=== PATIENT | male | born 1945 | race Caucasian/White ===

== ENCOUNTER → 2019-03-06 19:49 | Outpatient (ROUT) | payer MEDICARE, SELFPAY ==
[2019-03-06 20:04] LABS: Add Manual Diff / Slide Review NO; Basophils Absolute Auto 100 /uL (0-100); Basophils Percent Auto 1.1 % (0-2); Eosinophils Absolute Auto 300 /uL (0-450); Eosinophils Percent Auto 2.6 % (2-4); Hemoglobin 15.8 g/dL (13.5-17.5); Lymphocytes Absolute Auto 2000 /uL (1100-4500); Lymphocytes Percent Auto 20.4 % (25-40); Mean Corpuscular HGB Conc 35.1 % (30-36); Mean Corpuscular Hemoglobin 33.2 PG (26-34); Mean Corpuscular Volume 94.4 fL (80-100); Monocytes Absolute Auto 900 /uL (0-900); Monocytes Percent Auto 9.4 % (3-14); Neutrophils Absolute Auto 6700 /uL (1500-7000); Neutrophils Percent Auto 66.5 % (50-75); Platelet Count 246 X10^3/uL (150-400); Red Blood Cell Count 4.76 X10^6/uL (4.5-5.9); Red Cell Distribution Width 12.4 % (11.6-14.8)
[2019-03-06 20:10] LABS: Alanine Aminotransferase 24 IU/L (<50); Albumin 4.1 g/dL (3.5-5.0); Albumin Globulin Ratio 1.9 (1.0-2.8); Alkaline Phosphatase 102 U/L (38-126); Aspartate Aminotransferase 33 IU/L (17-59); Bilirubin Total 0.7 mg/dL (0.2-1.3); Blood Urea Nitrogen 16 mg/dL (9-20); Calcium 9.8 mg/dL (8.4-10.2); Carbon Dioxide 28 mmol/L (22-32); Chloride 103 mmol/L (98-107); Cholesterol 195 mg/dL (140-199); Estimated Glomerular Filt Rate > 60.0 mL/min (>60); Globulin 2.2 g/dL (1.7-4.1); Glucose 126 mg/dL (80-110); HDL Cholesterol 50 mg/dL (40-60); HEMOLYSIS 20 (0-50); LDL Cholesterol Calculated 112 mg/dL (<100); Magnesium 2.3 mg/dL (1.6-2.3); Sodium 138 mmol/L (137-145); Total Protein 6.3 g/dL (6.3-8.2); Triglycerides 165 mg/dL (35-150)
[2019-03-06 20:26] LABS: Vitamin D 25 Hydroxy (D3) 16.8 ng/mL (30.0-100.0)
[2019-03-06 20:30] LABS: B Type Natriuretic Peptide < 100 (<100)
== END ==
PROVIDERS: Visit Provider Physician Assistant
DX: I10 Essential (primary) hypertension (principal); R60.9 Edema, unspecified; R25.2 Cramp and spasm; I20.8 Other forms of angina pectoris; E55.9 Vitamin D deficiency, unspecified; E78.2 Mixed hyperlipidemia
CPT/HCPCS: 80053; 80061; 82306; 83735; 83880; 85025

== ENCOUNTER → 2019-03-20 13:42 | Outpatient (CLI) | payer MEDICARE, SELFPAY ==
--- NOTE | 2019-03-20 | DI.ECHO.S_ITS ---
[facility] +---------+ : : [address] : : : : [id number] : : : : Phone: [phone]---------+ Echocardiogram Report + + :Name: GILBERTO TAVAREZ Study Date: 03/20/2019 Height: 72 in : :[facility] Weight: 205 lb : : Gender: Male BSA: 2.2 m2 : :: 1945 Age: 73 yrs BP: 144/90 mmHg: :Reason For Study: Angina : : Performed By: [facility] Staff : :Referring: KAYLA MCGILL : + + Interpretation Summary The left ventricle is normal in size.The ejection fraction is estimated to be 60-65%. The right ventricle is normal in size and function. No significant valvular pathology seen. Procedure: A two-dimensional transthoracic echocardiogram with color flow and Doppler was performed. The study quality was technically adequate. There is no prior echocardiogram noted for this patient. The patient was in normal sinus rhythm during the exam. The heart rate ranged between 49-64 bpm during the study. Left Ventricle: The left ventricle is normal in size. There is mild concentric left ventricular hypertrophy. A false chord is noted (normal variant). Left ventricular systolic function is normal. The ejection fraction is estimated to be 60-65%. Left ventricular wall motion is normal. Diastolic parameters suggest a relaxation abnormality of the left ventricle, consistent with probable normal filling pressures. Right Ventricle: The right ventricle is normal in size and function. Atria: The left atrial size is normal. Right atrial size is normal. The interatrial septum is intact with no evidence for an atrial septal defect. Mitral Valve: The mitral valve leaflets are slightly calcified. There is trace mitral regurgitation. Aortic Valve: The aortic valve is trileaflet. The aortic valve opens well. There is no aortic valve stenosis. No aortic regurgitation is present. Tricuspid Valve: The tricuspid valve is normal in structure and function. There is trace tricuspid regurgitation. Pulmonary artery pressures cannot be estimated because of the lack of a measurable TR jet velocity. Pulmonic Valve: The pulmonic valve is not well seen, but is grossly normal. There is trace pulmonic regurgitation. Great Vessels: The aortic root is mildly dilated. The dimensions of the ascending aorta are normal. The pulmonary artery is normal size. The IVC is dilated (diameter is greater than 2.1 cm) yet it collapses greater than 50% with a sniff. This suggests a right atrial pressure of 8 mm Hg. Pericardium/ Pleura There is no pericardial effusion. There is no pleural effusion. MMode/2D Measurements & Calculations LVIDd: 4.9 cm LVOT diam: 2.1 cm LVIDs: 3.4 cm Ao root diam: 3.9 cm FS: 31.4 % Aortic Jxn: 3.4 cm EPSS: 0.74 cm asc Aorta Diam: 3.4 cm IVSd: 1.0 cm LVPWd: 1.1 cm LV lang. diameter/BSA (cm/m^2): 2.3 LV sys. diameter/BSA (cm/m^2): 1.6 LA A2 area: 18.7 cm2 RA long axis: 5.4 cm LA A4 area: 16.5 cm2 RA area: 14.1 cm2 LA length (vol): 5.0 cm RA vol: 31.2 ml LA vol: 52.4 ml RA : 14.5 ml/m2 LA vol index: 24.3 ml/m2 TAPSE: 2.1 cm Doppler Measurements & Calculations Ao V2 max: 112.6 cm/sec LVOT Max Len: 98.4 cm/sec Ao V2 mean: 75.4 cm/sec LV V1 max P.9 mmHg Ao max P.1 mmHg LV V1 VTI: 21.8 cm Ao mean P.7 mmHg ASIA(I,D): 3.3 cm2 Ao V2 VTI: 24.3 cm ASIA(V,D): 3.2 cm2 sev ratio: 0.90 ASIA indexed to BSA (cm^2/m^2): 1.5 MV E max len: 65.4 cm/sec PA V2 max: 81.8 cm/sec MV A max len: 88.3 cm/sec PA V2 mean: 52.3 cm/sec MV E/A: 0.74 PA mean P.3 mmHg Med Peak E' Len: 5.2 cm/sec PA Accel Time: 0.12 sec E/E' med: 12.7 Lat Peak E' Len: 7.1 cm/sec E/E' lat: 9.2 E/e' average: 10.9 MV dec time: 0.17 sec SV(LVOT): 79.0 ml Reading Physician:12:50 PM
== END ==
PROVIDERS: Visit Provider Physician Assistant
DX: I20.8 Other forms of angina pectoris (principal); R07.9 Chest pain, unspecified; R60.9 Edema, unspecified
CPT/HCPCS: 93306

== ENCOUNTER 2021-01-29 11:32 | Emergency (ER) | payer MEDICARE, SELFPAY ==
[2021-01-29] VITALS (20 sets, daily range): BP systolic 155–214; BP diastolic 77–110; PULSE 59–77; RESP 13–24; TEMP 36.7; O2SAT 93–97; BMI 25.7
--- NOTE | 2021-01-29 11:48 | DI.RAD.S_ITS ---
PROCEDURE: XR CHEST 1V INDICATIONS: chest pain TECHNIQUE: One view of the chest was acquired. COMPARISON: None. FINDINGS: Surgical changes and devices: Lower cervical spine fixation hardware is seen. Lungs and pleura: On this semiupright portable chest examination, no large pneumothorax or large pleural effusions are seen. No focal infiltrates are seen. Mediastinum: The cardiac contours are within normal limits. The aorta demonstrates calcification and tortuosity. Bones and chest wall: Age-appropriate bony degenerative changes are seen. No suspicious bony lesions. Overlying soft tissues appear unremarkable. IMPRESSION: Unremarkable portable chest for age, with note made of postoperative and degenerative change. Dictated by: Luan Patten M.D. on 01/29/2021 at 11:16 Approved by: Luan Patten M.D. on 01/29/2021 at 11:17
[2021-01-29 12:27] LABS: Add Manual Diff / Slide Review NO; Basophils Absolute Auto 100 /uL (0-100); Basophils Percent Auto 1.1 % (0-2); Eosinophils Absolute Auto 100 /uL (0-450); Eosinophils Percent Auto 1.1 % (2-4); Hematocrit 44.7 % (41-53); Hemoglobin 15.9 g/dL (13.5-17.5); Lymphocytes Absolute Auto 2000 /uL (1100-4500); Mean Corpuscular HGB Conc 35.6 % (30-36); Mean Corpuscular Hemoglobin 33.9 PG (26-34); Mean Corpuscular Volume 95.3 fL (80-100); Monocytes Absolute Auto 800 /uL (0-900); Neutrophils Absolute Auto 6500 /uL (1500-7000); Neutrophils Percent Auto 68.8 % (50-75); Platelet Count 224 X10^3/uL (150-400); Red Blood Cell Count 4.69 X10^6/uL (4.5-5.9); Red Cell Distribution Width 12.7 % (11.6-14.8); White Blood Cell Count 9.4 X10^3/uL (4.5-11.0)
--- NOTE | 2021-01-29 12:31 | ED_ITS ---
HPI - Dizziness <Roberto Soni PA-C - Last Filed: 01/29/21 18:21> General Chief Complaint: Dizziness Stated Complaint: Dizzy, High BP x 2days Time Seen by Provider: 01/29/21 12:01 Source: patient Mode of arrival: Family Vehicle Limitations: no limitations History of Present Illness HPI Narrative: Patient is a 75-year-old male with a history of hypertension and tinnitus presenting to the emergency department today for an evaluation of dizziness that began approximately 2 days ago. Patient states that he has had intermittent episodes of dizziness that he states is worse with rapid position change. He notes that his dizziness can become severe enough caused him to stumble. Additionally, patient states that he has experienced intermittent episodes of calf cramping bilaterally, mild headache, nausea, and cough. He also notes that his blood pressure has been elevated recently, stating that his systolic blood pressure was 196 prior to arriving to the emergency department today. Of note, he states that his systolic blood pressure is usually below 150. Patient denies further symptoms including fever, chills, chest pain, shortness of breath, abdominal pain, vomiting, diarrhea, dysuria, ear pain, syncope, changes in vision. No further complaints voiced at this time. Related Data Previous Rx's Medication Instructions Recorded meclizine 12.5 mg tablet 12.5 mg PO DAILY #20 tab 01/29/21 Review of Systems <Roberto Soni PA-C - Last Filed: 01/29/21 18:21> Constitutional Constitutional: Denies chills, Denies fever(s), Denies frequent falls, Denies lethargy and Denies weakness Eyes Eyes: Denies change in vision, Denies eye discharge, Denies irritation and Denies loss of vision ENT Ears, Nose, Mouth, and Throat: Denies change in voice, Reports dizziness, Denies neck pain and Denies sore throat Cardiovascular Cardiovascular: Denies chest pain, Denies irregular heart rhythm, Denies lightheadedness, Denies palpitations, Denies dyspnea, Denies dyspnea on exertion and Denies orthopnea Respiratory Respiratory: Reports cough, Denies dyspnea, Denies dyspnea on exertion and Denies wheezing Gastrointestinal Gastrointestinal: Denies abdominal pain, Denies change in bowel habits, Denies diarrhea, Denies nausea and Denies vomiting Genitourinary Genitourinary: Denies hematuria and Denies dysuria Musculoskeletal Musculoskeletal: Denies neck pain and Denies numbness Neurologic Neurologic: Denies behavioral changes, Denies confusion, Reports dizziness, Denies frequent falls, Denies loss of vision, Denies numbness and Denies weakness Psychiatric Psychiatric: Denies behavioral changes and Denies confusion Endocrine Endocrine: Denies palpitations Allergic/Immunologic Allergic/Immunologic: Denies wheezing Patient History <Roberto Soni PA-C - Last Filed: 01/29/21 18:21> Social History Smoking Status: Former smoker Smoking Status: Former smoker alcohol intake frequency: 3 or more drinks per day Alcohol type: hard liquor Substance Use Type: marijuana Exam <Roberto Soni PA-C - Last Filed: 01/29/21 18:21> Narrative Exam Narrative: GENERAL: 75 year old patient appears stated age. Well-developed patient, in no acutedistress. HEAD: Atraumatic. Normocephalic. EYES: Pupils equal round and reactive. Extraocular motions intact. No scleral icterus. No injection or drainage. ENT: Nose without bleeding, purulent drainage. Throat without erythema, tonsillar hypertrophy or exudate. Airway patent. NECK: Trachea midline. Non tender CARDIOVASCULAR: Regular rate and rhythm without murmurs, gallops, or rubs. RESPIRATORY: Clear to auscultation. Breath sounds equal bilaterally. No wheezes, rales, or rhonchi. GASTROINTESTINAL: Abdomen soft, non-tender, nondistended. EXTREMITIES: No edema or joint tenderness. BACK: Nontender without deformity or crepitance. No flank tenderness. NEURO: AOx3. SKIN: No rash or erythema of visible areas Initial Vital Signs Initial Vital Signs: Vital Signs Temperature 98.0 F 01/29/21 11:41 Pulse Rate 71 01/29/21 11:41 Respiratory Rate 20 01/29/21 11:41 Blood Pressure 191/100 H 01/29/21 11:41 Pulse Oximetry 96 01/29/21 11:41 <Jessica Dia DO - Last Filed: 01/30/21 08:17> Initial Vital Signs Initial Vital Signs: Vital Signs Temperature 98.0 F 01/29/21 11:41 Pulse Rate 71 01/29/21 11:41 Respiratory Rate 20 01/29/21 11:41 Blood Pressure 191/100 H 01/29/21 11:41 Pulse Oximetry 96 01/29/21 11:41 Course <Roberto Soni PA-C - Last Filed: 01/29/21 18:21> Course Course Narrative: Patient is a 75-year-old male with a history of hypertension and tinnitus presenting to the emergency department today for an evaluation of dizziness that began approximately 2 days ago. Orders Ordered: Discontinued Medications Sodium Chloride (Normal Saline 0.9%) 1,000 mls @ 1,000 mls/hr IV BOLUS ONE Stop: 01/29/21 15:07 Last Infusion: 01/29/21 16:22 Dose: 0 mls/hr Documented by: Admin: 01/29/21 14:11 Dose: 1,000 mls/hr Documented by: CARLINE Labetalol HCl (Labetalol 20 Mg/4 Ml Syringe) 10 mg IV NOW ONE Stop: 01/29/21 14:33 Last Admin: 01/29/21 14:36 Dose: 10 mg Documented by: CARLINE Meclizine HCl (Meclizine Hcl 12.5 Mg Tablet) 25 mg PO NOW ONE Stop: 01/29/21 12:46 Last Admin: 01/29/21 13:26 Dose: 25 mg Documented by: CARLINE Reevaluation(s) Reevaluation #1: Patient states he is comfortable in his current position on stretcher. He states that he just returned back from his CT scan. Most recent blood pressure was recorded at 214/104. Time: 13:49 Reevaluation #2: Patient states he is feeling much better and has no further reported episodes dizziness. Additionally, blood pressure has decreased following administration of IV labetalol. Time: 15:42 Vital Signs Vital signs: Vital Signs - 8 hr 01/29/21 11:41 01/29/21 11:57 01/29/21 12:00 Temperature 98.0 F Pulse Rate 71 63 64 Respiratory Rate 20 18 17 Blood Pressure 191/100 H 204/96 H Pulse Oximetry 96 96 01/29/21 12:21 01/29/21 12:30 01/29/21 13:00 Temperature Pulse Rate 62 63 59 L Respiratory Rate 19 21 13 Blood Pressure 192/95 H 181/94 H 155/77 H Pulse Oximetry 95 96 93 01/29/21 13:19 01/29/21 13:30 01/29/21 13:55 Temperature Pulse Rate 69 68 60 Respiratory Rate 24 17 Blood Pressure 214/103 H 214/104 H 199/91 H Pulse Oximetry 97 97 95 01/29/21 14:00 01/29/21 14:04 01/29/21 14:06 Temperature Pulse Rate 69 77 74 Respiratory Rate 15 23 20 Blood Pressure 200/95 H 196/100 H 191/110 H Pulse Oximetry 95 94 94 01/29/21 14:30 01/29/21 14:31 01/29/21 14:36 Temperature Pulse Rate 59 L 61 60 Respiratory Rate 15 16 Blood Pressure 192/81 H 192/81 H Pulse Oximetry 96 97 01/29/21 15:00 01/29/21 15:27 01/29/21 15:30 Temperature Pulse Rate 71 67 64 Respiratory Rate 21 16 18 Blood Pressure 170/85 H 176/90 H Pulse Oximetry 96 95 94 01/29/21 16:00 01/29/21 16:30 Temperature Pulse Rate 65 63 Respiratory Rate 19 15 Blood Pressure 168/82 H 163/77 H Pulse Oximetry 95 96 <Jessica Dia, DO - Last Filed: 01/30/21 08:17> Orders Ordered: Discontinued Medications Sodium Chloride (Normal Saline 0.9%) 1,000 mls @ 1,000 mls/hr IV BOLUS ONE Stop: 01/29/21 15:07 Last Infusion: 01/29/21 16:22 Dose: 0 mls/hr Documented by: Admin: 01/29/21 14:11 Dose: 1,000 mls/hr Documented by: CARLINE Labetalol HCl (Labetalol 20 Mg/4 Ml Syringe) 10 mg IV NOW ONE Stop: 01/29/21 14:33 Last Admin: 01/29/21 14:36 Dose: 10 mg Documented by: CARLINE Meclizine HCl (Meclizine Hcl 12.5 Mg Tablet) 25 mg PO NOW ONE Stop: 01/29/21 12:46 Last Admin: 01/29/21 13:26 Dose: 25 mg Documented by: CARLINE Vital Signs Vital signs: Vital Signs - 8 hr 01/29/21 11:41 01/29/21 11:57 01/29/21 12:00 Temperature 98.0 F Pulse Rate 71 63 64 Respiratory Rate 20 18 17 Blood Pressure 191/100 H 204/96 H Pulse Oximetry 96 96 01/29/21 12:21 01/29/21 12:30 01/29/21 13:00 Temperature Pulse Rate 62 63 59 L Respiratory Rate 19 21 13 Blood Pressure 192/95 H 181/94 H 155/77 H Pulse Oximetry 95 96 93 01/29/21 13:19 01/29/21 13:30 01/29/21 13:55 Temperature Pulse Rate 69 68 60 Respiratory Rate 24 17 Blood Pressure 214/103 H 214/104 H 199/91 H Pulse Oximetry 97 97 95 01/29/21 14:00 01/29/21 14:04 01/29/21 14:06 Temperature Pulse Rate 69 77 74 Respiratory Rate 15 23 20 Blood Pressure 200/95 H 196/100 H 191/110 H Pulse Oximetry 95 94 94 01/29/21 14:30 01/29/21 14:31 01/29/21 14:36 Temperature Pulse Rate 59 L 61 60 Respiratory Rate 15 16 Blood Pressure 192/81 H 192/81 H Pulse Oximetry 96 97 01/29/21 15:00 01/29/21 15:27 01/29/21 15:30 Temperature Pulse Rate 71 67 64 Respiratory Rate 21 16 18 Blood Pressure 170/85 H 176/90 H Pulse Oximetry 96 95 94 01/29/21 16:00 01/29/21 16:30 Temperature Pulse Rate 65 63 Respiratory Rate 19 15 Blood Pressure 168/82 H 163/77 H Pulse Oximetry 95 96 MDM - Dizziness <Roberto Soni PA-C - Last Filed: 01/29/21 18:21> Lab Data Result diagrams: 01/29/21 12:19 01/29/21 12:19 Labs: Lab Results 01/29/21 01/29/21 01/29/21 Range/Units 12:19 12:19 15:15 WBC 9.4 (4.5-11.0) X10^3/uL RBC 4.69 (4.5-5.9) X10^6/uL Hgb 15.9 (13.5-17.5) g/dL Hct 44.7 (41-53) % MCV 95.3 (80-100) fL MCH 33.9 (26-34) PG MCHC 35.6 (30-36) % RDW 12.7 (11.6-14.8) % Plt Count 224 (150-400) X10^3/uL Neut % (Auto) 68.8 (50-75) % Lymph % (Auto) 21.0 L (25-40) % [place] % (Auto) 8.0 (3-14) % Eos % (Auto) 1.1 L (2-4) % Baso % (Auto) 1.1 (0-2) % Neut # (Auto) 6500 (9431-6293) /uL Lymph # (Auto) 2000 (3754-5556) /uL [place] # (Auto) 800 (0-900) /uL Eos # (Auto) 100 (0-450) /uL Baso # (Auto) 100 (0-100) /uL Sodium 137 (137-145) mmol/L Potassium 4.2 (3.4-5.1) mmol/L Chloride 105 (98-107) mmol/L Carbon Dioxide 25 (22-32) mmol/L BUN 15 (9-20) mg/dL Creatinine 1.15 (0.66-1.25) mg/dL Estimated GFR > 60.0 (>60) mL/min BUN/Creatinine Ratio 13.0 (6-22) Glucose 121 H (80-110) mg/dL Calcium 9.3 (8.4-10.2) mg/dL Total Bilirubin 0.8 (0.2-1.3) mg/dL AST 27 (17-59) IU/L ALT 18 (<50) IU/L Alkaline Phosphatase 76 (38-126) U/L Total Creatine Kinase 112 (55-170) U/L CK-MB (CK-2) 1.77 (<2.37) ng/mL CK-MB (CK-2) Rel Index 1.6 (1.5-5.0) % Troponin I < 0.012 (0.01-0.034) ng/mL Total Protein 6.1 L (6.3-8.2) g/dL Albumin 4.0 (3.5-5.0) g/dL Globulin 2.1 (1.7-4.1) g/dL Albumin/Globulin Ratio 1.9 (1.0-2.8) Lipase 78 (23-300) U/L Urine Color Yellow Urine Appearance Clear Urine pH 6.0 (4.5-8.0) Ur Specific [place] <=1.005 (1.000-1.035) Urine Protein Negative (Negative) Urine Glucose (UA) Negative (Negative) g/dL Urine Ketones Negative (NEGATIVE) Urine Occult Blood Trace-intact (Negative) Urine Nitrate Negative (Negative) Urine Bilirubin Negative (NEGATIVE) Urine Urobilinogen 0.2 (0.2) E.U./dL Ur Leukocyte Esterase Negative (NEGATIVE) Urine RBC 0-1/hpf (0-5/HPF) Urine WBC None seen (0-5/HPF) Urine Bacteria None seen (None) Ur Culture Indicated? Cult not indicated 01/29/21 Range/Units 15:30 WBC (4.5-11.0) X10^3/uL RBC (4.5-5.9) X10^6/uL Hgb (13.5-17.5) g/dL Hct (41-53) % MCV (80-100) fL MCH (26-34) PG MCHC (30-36) % RDW (11.6-14.8) % Plt Count (150-400) X10^3/uL Neut % (Auto) (50-75) % Lymph % (Auto) (25-40) % [place] % (Auto) (3-14) % Eos % (Auto) (2-4) % Baso % (Auto) (0-2) % Neut # (Auto) (6500-6461) /uL Lymph # (Auto) (9528-3062) /uL [place] # (Auto) (0-900) /uL Eos # (Auto) (0-450) /uL Baso # (Auto) (0-100) /uL Sodium (137-145) mmol/L Potassium (3.4-5.1) mmol/L Chloride (98-107) mmol/L Carbon Dioxide (22-32) mmol/L BUN (9-20) mg/dL Creatinine (0.66-1.25) mg/dL Estimated GFR (>60) mL/min BUN/Creatinine Ratio (6-22) Glucose (80-110) mg/dL Calcium (8.4-10.2) mg/dL Total Bilirubin (0.2-1.3) mg/dL AST (17-59) IU/L ALT (<50) IU/L Alkaline Phosphatase (38-126) U/L Total Creatine Kinase 118 (55-170) U/L CK-MB (CK-2) 1.59 (<2.37) ng/mL CK-MB (CK-2) Rel Index 1.3 L (1.5-5.0) % Troponin I < 0.012 (0.01-0.034) ng/mL Total Protein (6.3-8.2) g/dL Albumin (3.5-5.0) g/dL Globulin (1.7-4.1) g/dL Albumin/Globulin Ratio (1.0-2.8) Lipase (23-300) U/L Urine Color Urine Appearance Urine pH (4.5-8.0) Ur Specific [place] (1.000-1.035) Urine Protein (Negative) Urine Glucose (UA) (Negative) g/dL Urine Ketones (NEGATIVE) Urine Occult Blood (Negative) Urine Nitrate (Negative) Urine Bilirubin (NEGATIVE) Urine Urobilinogen (0.2) E.U./dL Ur Leukocyte Esterase (NEGATIVE) Urine RBC (0-5/HPF) Urine WBC (0-5/HPF) Urine Bacteria (None) Ur Culture Indicated? MDM Narrative Medical decision making narrative: Patient is a 75-year-old male with a history of hypertension and tinnitus presenting to the emergency department today for an evaluation of dizziness that began approximately 2 days ago. To consider benign paroxysmal positional vertigo versus electrolyte derangement versus hypertensive urgency. Chest x-ray, EKG, CBC, CMP, lipase, troponin, urinalysis obtained. Overall history and physical examination reassuring. Chest x-ray and CT obtained in the emergency department today unremarkable. Additionally, lab work all resulted reassuring. Discussed with the patient the results of his lab work and imaging obtained today. Instructed the patient to reach out to his primary care provider as soon as possible to schedule the earliest available appointment. Of note, specifically discussed with the patient the need to focus on strict adherence to his antihypertensive medication regimen. At this time patient feels comfortable with being discharge home. Strict return precautions were discussed with the patient prior to discharge. <Jessica Dia DO - Last Filed: 01/30/21 08:17> Lab Data Labs: Lab Results 01/29/21 01/29/21 01/29/21 Range/Units 12:19 12:19 15:15 WBC 9.4 (4.5-11.0) X10^3/uL RBC 4.69 (4.5-5.9) X10^6/uL Hgb 15.9 (13.5-17.5) g/dL Hct 44.7 (41-53) % MCV 95.3 (80-100) fL MCH 33.9 (26-34) PG MCHC 35.6 (30-36) % RDW 12.7 (11.6-14.8) % Plt Count 224 (150-400) X10^3/uL Neut % (Auto) 68.8 (50-75) % Lymph % (Auto) 21.0 L (25-40) % [place] % (Auto) 8.0 (3-14) % Eos % (Auto) 1.1 L (2-4) % Baso % (Auto) 1.1 (0-2) % Neut # (Auto) 6500 (5308-2573) /uL Lymph # (Auto) 2000 (4647-6917) /uL [place] # (Auto) 800 (0-900) /uL Eos # (Auto) 100 (0-450) /uL Baso # (Auto) 100 (0-100) /uL Sodium 137 (137-145) mmol/L Potassium 4.2 (3.4-5.1) mmol/L Chloride 105 (98-107) mmol/L Carbon Dioxide 25 (22-32) mmol/L BUN 15 (9-20) mg/dL Creatinine 1.15 (0.66-1.25) mg/dL Estimated GFR > 60.0 (>60) mL/min BUN/Creatinine Ratio 13.0 (6-22) Glucose 121 H (80-110) mg/dL Calcium 9.3 (8.4-10.2) mg/dL Total Bilirubin 0.8 (0.2-1.3) mg/dL AST 27 (17-59) IU/L ALT 18 (<50) IU/L Alkaline Phosphatase 76 (38-126) U/L Total Creatine Kinase 112 (55-170) U/L CK-MB (CK-2) 1.77 (<2.37) ng/mL CK-MB (CK-2) Rel Index 1.6 (1.5-5.0) % Troponin I < 0.012 (0.01-0.034) ng/mL Total Protein 6.1 L (6.3-8.2) g/dL Albumin 4.0 (3.5-5.0) g/dL Globulin 2.1 (1.7-4.1) g/dL Albumin/Globulin Ratio 1.9 (1.0-2.8) Lipase 78 (23-300) U/L Urine Color Yellow Urine Appearance Clear Urine pH 6.0 (4.5-8.0) Ur Specific [place] <=1.005 (1.000-1.035) Urine Protein Negative (Negative) Urine Glucose (UA) Negative (Negative) g/dL Urine Ketones Negative (NEGATIVE) Urine Occult Blood Trace-intact (Negative) Urine Nitrate Negative (Negative) Urine Bilirubin Negative (NEGATIVE) Urine Urobilinogen 0.2 (0.2) E.U./dL Ur Leukocyte Esterase Negative (NEGATIVE) Urine RBC 0-1/hpf (0-5/HPF) Urine WBC None seen (0-5/HPF) Urine Bacteria None seen (None) Ur Culture Indicated? Cult not indicated 01/29/21 Range/Units 15:30 WBC (4.5-11.0) X10^3/uL RBC (4.5-5.9) X10^6/uL Hgb (13.5-17.5) g/dL Hct (41-53) % MCV (80-100) fL MCH (26-34) PG MCHC (30-36) % RDW (11.6-14.8) % Plt Count (150-400) X10^3/uL Neut % (Auto) (50-75) % Lymph % (Auto) (25-40) % [place] % (Auto) (3-14) % Eos % (Auto) (2-4) % Baso % (Auto) (0-2) % Neut # (Auto) (6464-5229) /uL Lymph # (Auto) (6102-4727) /uL [place] # (Auto) (0-900) /uL Eos # (Auto) (0-450) /uL Baso # (Auto) (0-100) /uL Sodium (137-145) mmol/L Potassium (3.4-5.1) mmol/L Chloride (98-107) mmol/L Carbon Dioxide (22-32) mmol/L BUN (9-20) mg/dL Creatinine (0.66-1.25) mg/dL Estimated GFR (>60) mL/min BUN/Creatinine Ratio (6-22) Glucose (80-110) mg/dL Calcium (8.4-10.2) mg/dL Total Bilirubin (0.2-1.3) mg/dL AST (17-59) IU/L ALT (<50) IU/L Alkaline Phosphatase (38-126) U/L Total Creatine Kinase 118 (55-170) U/L CK-MB (CK-2) 1.59 (<2.37) ng/mL CK-MB (CK-2) Rel Index 1.3 L (1.5-5.0) % Troponin I < 0.012 (0.01-0.034) ng/mL Total Protein (6.3-8.2) g/dL Albumin (3.5-5.0) g/dL Globulin (1.7-4.1) g/dL Albumin/Globulin Ratio (1.0-2.8) Lipase (23-300) U/L Urine Color Urine Appearance Urine pH (4.5-8.0) Ur Specific [place] (1.000-1.035) Urine Protein (Negative) Urine Glucose (UA) (Negative) g/dL Urine Ketones (NEGATIVE) Urine Occult Blood (Negative) Urine Nitrate (Negative) Urine Bilirubin (NEGATIVE) Urine Urobilinogen (0.2) E.U./dL Ur Leukocyte Esterase (NEGATIVE) Urine RBC (0-5/HPF) Urine WBC (0-5/HPF) Urine Bacteria (None) Ur Culture Indicated? Imaging Data CTA - brain/neck: Radiologist's Impression: PROCEDURE:? CT ANGIO HEAD AND NECK ? INDICATIONS:? Dizziness ? TECHNIQUE:? Pre-contrast 4.5 mm thick sections acquired from the foramen magnum to the vertex.? After the administration of intravenous contrast, 1 mm thick sections acquired from the aortic arch through the Robinson of [place].? Post-contrast 4.5 mm thick sections then re- acquired from the foramen magnum to the vertex.? 3-dimensional wekhwdo-cscpidozi-koulhffcez (MIP) and/or volume rendering reformats were acquired of the central intracranial vasculature and neck separately. ? COMPARISON:? None. ? FINDINGS: Image quality:? Excellent.? ? BRAIN:? CSF spaces:? Ventricles are normal in size and shape.? Basal cisterns are patent.? No extra-axial fluid collections.? ? ? Brain:? No midline shift.? No intracranial bleeds or masses.? Jain-white matter interface appears intact.? Minimal atherosclerotic calcifications noted in the intracranial segments of the internal carotid arteries.? ? Skull and face:? Calvarium and facial bones appear intact, without suspicious lesions.? Orbits appear normal.? ? ? Sinuses:? Likely mucous retention cyst identified in the bilateral maxillary sinuses.? Mastoid air cells are clear ? ? HEAD CT ANGIOGRAPHY:? Anterior circulation:? Mild scattered intracranial internal carotid artery vascular calcifications.? Intracranial internal carotid arteries appear patent without high-grade stenosis. There is flow/opacification within the paired anterior cerebral raeann xavi.? The flow within the middle cerebral arteries appears normal and symmetric.? The anterior communicating artery is seen.? No aneurysms are seen. No occlusion. ? ? Posterior circulation:? ? Visualized portions of the vertebral arteries are patent and join to form a normal appearing basilar artery.? No evidence for high-grade stenosis. No occlusions. There is opacification of the posterior cerebral arteries.? No aneurysms are seen.? ? NECK CT ANGIOGRAPHY:? Carotid system:? The origins of the great vessels were not included in the field of view. ?The proximal great vessels to include the brachiocephalic trunk, left common carotid artery, and left subclavian artery appear widely patent.? The common carotid arteries demonstrate normal caliber and courses.? Mild atherosclerotic calcifications of the bilateral carotid bifurcations.? The origins of the carotid bifurcations appear widely patent as is the internal carotid artery.? The internal carotid arteries demonstrate normal calibers and courses.? ? Posterior circulation:? ? The origins of the vertebral arteries both appear patent without hemodynamically significant stenosis.? The more superior extracranial portions of both vertebral arteries also demonstrate normal courses and calibers.? They join to form a normal appearing basilar artery. ? ? ? Soft tissues:? Visualized neck soft tissues demonstrate no suspicious abnormalities. ? ? Bones:? No suspicious bony lesions.? Visualized cervical spine appears normally aligned.? No acute compression fractures of the vertebral bodies.? Postoperative changes from anterior cervical discectomy and fusion of C4 through C7.? No evidence for hardware complication.? Moderate multilevel cervical spondylosis of the imaged cervical spine.? ? IMPRESSION:? ? 1. CT head without acute intracranial abnormalities or acute calvarial fractures. ? 2. Scattered atherosclerotic calcifications without hemodynamically significant stenosis of the imaged intracranial and extracranial arterial vasculature.? Overall, negative CT angiogram of the head and neck. ? 3. Status post ACDF of C4 through C7 without hardware complication.? Moderate multilevel cervical spondylosis.? ? 4. Mucous retention cyst noted in the bilateral maxillary sinuses.? ? Any quantitative measurements of stenosis were performed using NASCET criteria.? Any quantitative measurements of stenosis were performed using NASCET criteria.? ? ? Dictated by: Oswaldo Duong M.D. on 01/29/2021 at 13:40 ?? Chest x-ray: Radiologist's Impression: PROCEDURE:? XR CHEST 1V ? INDICATIONS:? chest pain ? TECHNIQUE:? One view of the chest was acquired.? ? COMPARISON:? None. ? FINDINGS:? ? Surgical changes and devices:? Lower cervical spine fixation hardware is seen. ? Lungs and pleura:? On this semiupright portable chest examination, no large pneumothorax or large pleural effusions are seen.? No focal infiltrates are seen.? ? Mediastinum:? The cardiac contours are within normal limits. The aorta demonstrates calcification and tortuosity. ? Bones and chest wall:? Age-appropriate bony degenerative changes are seen.? No suspicious bony lesions.? Overlying soft tissues appear unremarkable.? IMPRESSION:? Unremarkable portable chest for age, with note made of postoper ative and degenerative change. ? ? Dictated by: Luan Patten M.D. on 01/29/2021 at 11:16 ? ? Approved by: Luan Patten M.D. on 01/29/2021 at 11:1 ECG Data Interpretation: Sinus rhythm rate 69 OK interval 160 QRS [address] changes Discharge Plan Departure Patient Disposition: Home Clinical Impression: Dizziness Hypertension Qualifiers: Hypertension type: unspecified Qualified Code(s): I10 - Essential (primary) hypertension Instructions: Essential Hypertension Activity Restrictions/Additional Instructions: *You have been diagnosed with hypertension, dizziness *What to do: *Please continue to take your regular medications as directed. [X] New medication prescriptions sent to your pharmacy: [facility] - meclizine [ ] New medication written as a paper prescription [ ] No new medications given *Please follow up with your primary care provider in 2-3 days, call for an a ppointment. Let them know you were seen in the Emergency Department and that we ask that you be seen in follow up. We will electronically transmit a record of today's note if your PCP is in our system *If you do not have a primary care provider please contact the [facility] Resource line at [phone]. They will ask some questions about your medical history and help get you set up with a doctor in the community. *Return to Emergency Department if you should have any new, worsening or c oncerning symptoms, such as fever greater than 101 F, shaking chills, worsening dizziness, syncope, persistent vomiting or other bothersome symptoms. Prescriptions: New meclizine 12.5 mg tablet 12.5 mg PO DAILY Qty: 20 RF: 0 Referrals: Sabrina Wang PA-C [Primary Care Provider] - <Jessica Dia DO - Last Filed: 01/30/21 08:17> Cosign ED Attending Jadeature Attestation: I was immediately available in the department for consultation. Documentation has been reviewed. I agree with assessment and plan.
[2021-01-29 12:45] LABS: Alanine Aminotransferase 18 IU/L (<50); Albumin Globulin Ratio 1.9 (1.0-2.8); Alkaline Phosphatase 76 U/L (38-126); Aspartate Aminotransferase 27 IU/L (17-59); Bilirubin Total 0.8 mg/dL (0.2-1.3); Blood Urea Nitrogen 15 mg/dL (9-20); Calcium 9.3 mg/dL (8.4-10.2); Chloride 105 mmol/L (98-107); Creatine Kinase 112 U/L (55-170); Estimated Glomerular Filt Rate > 60.0 mL/min (>60); Globulin 2.1 g/dL (1.7-4.1); Glucose 121 mg/dL (80-110); HEMOLYSIS < 15 (0-50); Lipase 78 U/L (23-300); Potassium 4.2 mmol/L (3.4-5.1); Sodium 137 mmol/L (137-145); Total Protein 6.1 g/dL (6.3-8.2)
--- NOTE | 2021-01-29 12:46 | DI.CT.S_ITS ---
PROCEDURE: CT ANGIO HEAD AND NECK INDICATIONS: Dizziness TECHNIQUE: Pre-contrast 4.5 mm thick sections acquired from the foramen magnum to the vertex. After the administration of intravenous contrast, 1 mm thick sections acquired from the aortic arch through the [place] of [place]. Post-contrast 4.5 mm thick sections then re-acquired from the foramen magnum to the vertex. 3-dimensional pzopglx-gepvwusrl-bytezpwpsk (MIP) and/or volume rendering reformats were acquired of the central intracranial vasculature and neck separately. COMPARISON: None. FINDINGS: Image quality: Excellent. BRAIN: CSF spaces: Ventricles are normal in size and shape. Basal cisterns are patent. No extra-axial fluid collections. Brain: No midline shift. No intracranial bleeds or masses. Jain-white matter interface appears intact. Minimal atherosclerotic calcifications noted in the intracranial segments of the internal carotid arteries. Skull and face: Calvarium and facial bones appear intact, without suspicious lesions. Orbits appear normal. Sinuses: Likely mucous retention cyst identified in the bilateral maxillary sinuses. Mastoid air cells are clear HEAD CT ANGIOGRAPHY: Anterior circulation: Mild scattered intracranial internal carotid artery vascular calcifications. Intracranial internal carotid arteries appear patent without high-grade stenosis. There is flow/opacification within the paired anterior cerebral arteries. The flow within the middle cerebral arteries appears normal and symmetric. The anterior communicating artery is seen. No aneurysms are seen. No occlusion. Posterior circulation: Visualized portions of the vertebral arteries are patent and join to form a normal appearing basilar artery. No evidence for high-grade stenosis. No occlusions. There is opacification of the posterior cerebral arteries. No aneurysms are seen. NECK CT ANGIOGRAPHY: Carotid system: The origins of the great vessels were not included in the field of view. The proximal great vessels to include the brachiocephalic trunk, left common carotid artery, and left subclavian artery appear widely patent. The common carotid arteries demonstrate normal caliber and courses. Mild atherosclerotic calcifications of the bilateral carotid bifurcations. The origins of the carotid bifurcations appear widely patent as is the internal carotid artery. The internal carotid arteries demonstrate normal calibers and courses. Posterior circulation: The origins of the vertebral arteries both appear patent without hemodynamically significant stenosis. The more superior extracranial portions of both vertebral arteries also demonstrate normal courses and calibers. They join to form a normal appearing basilar artery. Soft tissues: Visualized neck soft tissues demonstrate no suspicious abnormalities. Bones: No suspicious bony lesions. Visualized cervical spine appears normally aligned. No acute compression fractures of the vertebral bodies. Postoperative changes from anterior cervical discectomy and fusion of C4 through C7. No evidence for hardware complication. Moderate multilevel cervical spondylosis of the imaged cervical spine. IMPRESSION: 1. CT head without acute intracranial abnormalities or acute calvarial fractures. 2. Scattered atherosclerotic calcifications without hemodynamically significant stenosis of the imaged intracranial and extracranial arterial vasculature. Overall, negative CT angiogram of the head and neck. 3. Status post ACDF of C4 through C7 without hardware complication. Moderate multilevel cervical spondylosis. 4. Mucous retention cyst noted in the bilateral maxillary sinuses. Any quantitative measurements of stenosis were performed using NASCET criteria. Any quantitative measurements of stenosis were performed using NASCET criteria. Dictated by: Oswaldo Duong M.D. on 01/29/2021 at 13:40 Approved by: Oswaldo Duong M.D. on 01/29/2021 at 13:50
[2021-01-29 12:47] LABS: Carbon Dioxide 25 mmol/L (22-32)
[2021-01-29 12:57] LABS: Troponin I < 0.012 ng/mL (0.01-0.034)
[2021-01-29 13:01] LABS: CKMB % Relative Index 1.6 % (1.5-5.0); Creatine Kinase MB 1.77 ng/mL (<2.37)
[2021-01-29] MEDS: MECLIZINE HCL 12.5 MG TABLET 25 MG PO (13:26)
[2021-01-29] MEDS: SODIUM CHLORIDE 0.9% 1,000 ML 1000 ML IV (14:11)
[2021-01-29] MEDS: LABETALOL 20 MG/4 ML SYRINGE 10 MG IV (14:36)
[2021-01-29 16:00] LABS: Appearance Urine UA CLEAR; Bilirubin Urine UA NEGATIVE (NEGATIVE); Color Urine UA YELLOW; Glucose Urine UA NEGATIVE (Negative); Ketones Urine UA NEGATIVE (NEGATIVE); Leukocyte Esterase Urine UA NEGATIVE (NEGATIVE); Nitrite Urine UA NEGATIVE (Negative); Occult Blood Urine UA TRACE-INTACT (Negative); Protein Urine UA NEGATIVE (Negative); Specific Gravity Urine UA <=1.005 (1.000-1.035); Urobilinogen Urine UA 0.2 E.U./dL (0.2)
[2021-01-29 16:08] LABS: Creatine Kinase 118 U/L (55-170)
[2021-01-29 16:17] LABS: Bacteria Urine None Seen; Culture Indicated Urine Cult Not Indicated; RBC Urine 0-1/HPF (0-5/HPF); WBC Urine None Seen (0-5/HPF)
[2021-01-29 16:21] LABS: Troponin I < 0.012 ng/mL (0.01-0.034)
[2021-01-29 16:24] LABS: CKMB % Relative Index 1.3 % (1.5-5.0); Creatine Kinase MB 1.59 ng/mL (<2.37)
== END 2021-01-29 17:12 | disposition home or self-care (01) ==
PROVIDERS: Emergency Medicine; Emergency Provider Physician Assistant; PCP Physician Assistant
DX: R42 Dizziness and giddiness (principal); I10 Essential (primary) hypertension; R07.9 Chest pain, unspecified; R25.2 Cramp and spasm
CPT/HCPCS: 36415; 70496; 70498; 71045; 80053; 81001; 82550; 82553; 83690; 84484; 85025; 93005; 93010; 96361; 96374; 99284; 99285; Q9967

== ENCOUNTER 2024-08-17 12:14 | Emergency (ER) | payer MEDICARE, SELFPAY ==
[2024-08-17] VITALS (19 sets, daily range): BP systolic 135–164; BP diastolic 68–106; PULSE 59–88; RESP 9–24; TEMP 37; O2SAT 94–97; BMI 25.0
--- NOTE | 2024-08-17 12:24 | DI.RAD.S_ITS ---
PROCEDURE: XR CHEST 1V INDICATIONS: Chest Pain TECHNIQUE: One view of the chest was acquired. COMPARISON: [facility], CR, XR CHEST 1V, 01/29/2021, 12:03. FINDINGS: Surgical changes and devices: Cervical spinal fixation hardware is partially imaged. Lungs and pleura: Lungs are clear. No pleural effusions or pneumothorax. Mediastinum: Mediastinal contours appear normal. Heart size is normal. Bones and chest wall: No suspicious bony lesions. Overlying soft tissues appear unremarkable. IMPRESSION: No acute cardiopulmonary abnormality is seen. Approved by: Nima Wise M.D. on 08/17/2024 at 12:53
--- NOTE | 2024-08-17 12:32 | EKG_ITS ---
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
[2024-08-17 12:45] LABS: Prothrombin Time 11.2 SECONDS (9.4-12.5)
[2024-08-17 12:53] LABS: PTT Partial Thromboplastin Tim 38 SECONDS (25.1-36.5)
--- NOTE | 2024-08-17 13:06 | PC.NURSE ---
placed by Chel
[2024-08-17 13:11] LABS: Add Manual Diff / Slide Review NO; Basophils Absolute Auto 100 /uL (0-100); Basophils Percent Auto 0.8 % (0-2); Eosinophils Absolute Auto 100 /uL (0-450); Eosinophils Percent Auto 1.3 % (2-4); Hemoglobin 16.7 g/dL (13.5-17.5); Lymphocytes Absolute Auto 2600 /uL (1100-4500); Lymphocytes Percent Auto 22.9 % (25-40); Mean Corpuscular HGB Conc 34.7 % (30-36); Mean Corpuscular Hemoglobin 33.3 PG (26-34); Mean Corpuscular Volume 95.9 fL (80-100); Monocytes Absolute Auto 900 /uL (0-900); Monocytes Percent Auto 8.3 % (3-14); Neutrophils Absolute Auto 7600 /uL (1500-7000); Neutrophils Percent Auto 66.7 % (50-75); Platelet Count 253 X10^3/uL (150-400); Red Blood Cell Count 5.01 X10^6/uL (4.5-5.9); Red Cell Distribution Width 12.7 % (11.6-14.8); White Blood Cell Count 11.4 X10^3/uL (4.5-11.0)
[2024-08-17 13:14] LABS: Alanine Aminotransferase 19 IU/L (<50); Albumin 4.4 g/dL (3.5-5.0); Albumin Globulin Ratio 1.8 (1.0-2.8); Alkaline Phosphatase 96 U/L (38-126); Aspartate Aminotransferase 30 IU/L (17-59); Bilirubin Total 1.5 mg/dL (0.2-1.3); Blood Urea Nitrogen 13 mg/dL (9-20); Calcium 9.4 mg/dL (8.4-10.2); Carbon Dioxide 24 mmol/L (22-32); Chloride 105 mmol/L (98-107); Creatine Kinase 87 U/L (55-170); Estimated Glomerular Filt Rate > 60 mL/min (>60); Globulin 2.5 g/dL (1.7-4.1); Glucose 151 mg/dL (70-99); HEMOLYSIS < 15 (0-50); Lipase 65 U/L (23-300); Sodium 137 mmol/L (137-145); Total Protein 6.9 g/dL (6.3-8.2)
[2024-08-17 13:26] LABS: NT-proBNP (BNP-Adult 18+) 100 pg/mL (<450); Troponin I < 0.012 ng/mL (0.01-0.034)
--- NOTE | 2024-08-17 14:08 | ED.DIZZY ---
HPI - Dizziness General Chief Complaint: Dizziness Stated Complaint: Dizziness Time Seen by Provider: 08/17/24 13:39 Mode of arrival: Ambulatory History of Present Illness HPI Narrative: 79-year-old male reports dizziness today and some unsteadiness to his gait, worse with changes in position such as sitting to standing or lying to standing, not with movements of his head. No spinning sensation. No visual changes. Has had recent diarrhea, no black or red stools. No nausea or vomiting. No recent cough cold symptoms. No sinus pain or pressure headache symptoms. No changes in medications or new medications. He denies symptoms of nausea or vomiting, has been taking adequate recent oral intake, no black or red stools. Denies fevers or chills. Denies chest pain or shortness of breath. Related Data Previous Rx's Medication Instructions Recorded meclizine 12.5 mg tablet 12.5 mg PO DAILY #20 tabs 01/29/21 Allergies Allergy/AdvReac Type Severity Reaction Status Date / Time No Known Drug Allergies Allergy Verified 08/17/24 13:06 Patient History Social History Smoking Status: Never smoker Smoking Status: Never smoker alcohol intake frequency: 3 or more drinks per day Alcohol type: hard liquor Exam Narrative Exam Narrative: GENERAL: Well-developed patient, in mild distress. HEAD: Atraumatic. Normocephalic. EYES: Pupils equal round and reactive. Extraocular motions intact. No scleral icterus. No injection or drainage. ENT: Nose without bleeding, purulent drainage. Throat without erythema, tonsillar hypertrophy or exudate. Airway patent. NECK: Trachea midline. Non tender CARDIOVASCULAR: Regular rate and rhythm without murmurs, gallops, or rubs. RESPIRATORY: Clear to auscultation. Breath sounds equal bilaterally. No wheezes, rales, or rhonchi. GASTROINTESTINAL: Abdomen soft, non-tender, nondistended. EXTREMITIES: No edema or joint tenderness. BACK: Nontender without deformity or crepitance. No flank tenderness. NEURO: AOx3. Cranial nerves normal as tested. Motor 5/5 bilateral upper extremity and lower extremity. Some limited right hand movements due to muscle wasting and weakness due to remote old cervical spine surgery and neck fracture. Tpylhv-vt-sxcy testing normal bilaterally. SKIN: No rash or erythema of visible areas Initial Vital Signs Initial Vital Signs: Vital Signs Temperature 98.6 F 08/17/24 12:16 Pulse Rate 76 08/17/24 12:16 Respiratory Rate 20 08/17/24 12:16 Blood Pressure 164/77 H 08/17/24 12:16 Pulse Oximetry 96 08/17/24 12:16 Oxygen Delivery Method Room Air 08/17/24 12:16 Course Orders Ordered: ED Orders 08/17/24 12:24 XR chest 1V Stat EKG-12 Lead Stat 08/17/24 12:30 Complete Blood Count AUTO DIFF Stat Comprehensive Metabolic Panel Stat Lipase Stat Magnesium Stat NT-proBNP (BNP-Adult 18+) Stat PTT Partial Thromboplastin Bab[place]unde Stat Prothrombin Time INR Stat Troponin & CK Cardiac Panel Stat Discontinued Medications Aspirin (Aspirin 81 Mg Chew Tab) 324 mg PO NOW ONE Stop: 08/17/24 12:24 Last Admin: 08/17/24 13:07 Dose: Not Given Documented By: RJ Sodium Chloride (Normal Saline 0.9%) 1,000 mls @ 1,000 mls/hr IV BOLUS ONE Stop: 08/17/24 15:36 Last Infusion: 08/17/24 15:39 Dose: Infused Documented By: Admin: 08/17/24 14:43 Dose: 1,000 mls/hr Documented By: RED Vital Signs Vital signs: Vital Signs - 8 hr 08/17/24 12:16 08/17/24 12:41 08/17/24 12:43 Temperature 98.6 F Pulse Rate 76 68 Pulse Rate [Orthostatic Lying] Pulse Rate [Orthostatic Sitting] Pulse Rate [Orthostatic Standing] Respiratory Rate 20 Blood Pressure 164/77 H 153/78 H Blood Pressure [Orthostatic Lying] Blood Pressure [Orthostatic Sitting] Blood Pressure [Orthostatic Standing] Pulse Oximetry 96 96 Oxygen Delivery Method Room Air 08/17/24 12:43 08/17/24 13:00 08/17/24 13:01 Temperature Pulse Rate 62 88 Pulse Rate [Orthostatic Lying] Pulse Rate [Orthostatic Sitting] Pulse Rate [Orthostatic Standing] Respiratory Rate 13 17 Blood Pressure 158/106 H Blood Pressure [Orthostatic Lying] Blood Pressure [Orthostatic Sitting] Blood Pressure [Orthostatic Standing] Pulse Oximetry 96 96 Oxygen Delivery Method 08/17/24 13:01 08/17/24 13:23 08/17/24 13:23 Temperature Pulse Rate 86 67 Pulse Rate [Orthostatic Lying] Pulse Rate [Orthostatic Sitting] Pulse Rate [Orthostatic Standing] Respiratory Rate 24 15 Blood Pressure 135/68 Blood Pressure [Orthostatic Lying] Blood Pressure [Orthostatic Sitting] Blood Pressure [Orthostatic Standing] Pulse Oximetry 95 94 Oxygen Delivery Method 08/17/24 13:25 08/17/24 13:25 08/17/24 13:26 Temperature Pulse Rate 69 Pulse Rate [Orthostatic Lying] Pulse Rate [Orthostatic Sitting] Pulse Rate [Orthostatic Standing] Respiratory Rate 14 Blood Pressure 152/78 H 138/81 Blood Pressure [Orthostatic Lying] Blood Pressure [Orthostatic Sitting] Blood Pressure [Orthostatic Standing] Pulse Oximetry Oxygen Delivery Method 08/17/24 13:26 08/17/24 13:29 08/17/24 13:30 Temperature Pulse Rate 76 66 Pulse Rate [Orthostatic Lying] 67 Pulse Rate [Orthostatic Sitting] 68 Pulse Rate [Orthostatic Standing] 76 Respiratory Rate 16 21 Blood Pressure Blood Pressure [Orthostatic Lying] 138/68 Blood Pressure [Orthostatic Sitting] 152/78 H Blood Pressure [Orthostatic Standing] 138/81 Pulse Oximetry 95 Oxygen Delivery Method 08/17/24 13:31 08/17/24 13:31 08/17/24 14:00 Temperature Pulse Rate 64 59 L Pulse Rate [Orthostatic Lying] Pulse Rate [Orthostatic Sitting] Pulse Rate [Orthostatic Standing] Respiratory Rate 15 9 L Blood Pressure 140/79 Blood Pressure [Orthostatic Lying] Blood Pressure [Orthostatic Sitting] Blood Pressure [Orthostatic Standing] Pulse Oximetry 95 95 Oxygen Delivery Method 08/17/24 14:00 08/17/24 14:30 08/17/24 14:30 Temperature Pulse Rate 73 Pulse Rate [Orthostatic Lying] Pulse Rate [Orthostatic Sitting] Pulse Rate [Orthostatic Standing] Respiratory Rate 17 Blood Pressure 136/74 159/81 H Blood Pressure [Orthostatic Lying] Blood Pressure [Orthostatic Sitting] Blood Pressure [Orthostatic Standing] Pulse Oximetry 97 Oxygen Delivery Method 08/17/24 15:00 08/17/24 15:00 08/17/24 15:28 Temperature Pulse Rate 76 Pulse Rate [Orthostatic Lying] Pulse Rate [Orthostatic Sitting] Pulse Rate [Orthostatic Standing] Respiratory Rate 15 Blood Pressure 161/77 H 144/81 H Blood Pressure [Orthostatic Lying] Blood Pressure [Orthostatic Sitting] Blood Pressure [Orthostatic Standing] Pulse Oximetry 95 Oxygen Delivery Method 08/17/24 15:28 08/17/24 15:29 08/17/24 15:29 Temperature Pulse Rate 77 83 Pulse Rate [Orthostatic Lying] Pulse Rate [Orthostatic Sitting] Pulse Rate [Orthostatic Standing] Respiratory Rate 16 18 Blood Pressure 142/81 H Blood Pressure [Orthostatic Lying] Blood Pressure [Orthostatic Sitting] Blood Pressure [Orthostatic Standing] Pulse Oximetry 97 96 Oxygen Delivery Method 08/17/24 15:32 08/17/24 16:48 08/17/24 16:48 Temperature Pulse Rate 70 Pulse Rate [Orthostatic Lying] 72 Pulse Rate [Orthostatic Sitting] 75 Pulse Rate [Orthostatic Standing] 82 Respiratory Rate Blood Pressure 153/85 H Blood Pressure [Orthostatic Lying] 161/77 H Blood Pressure [Orthostatic Sitting] 144/81 H Blood Pressure [Orthostatic Standing] 142/81 H Pulse Oximetry 96 Oxygen Delivery Method 08/17/24 16:51 Temperature Pulse Rate 73 Pulse Rate [Orthostatic Lying] Pulse Rate [Orthostatic Sitting] Pulse Rate [Orthostatic Standing] Respiratory Rate 14 Blood Pressure 153/85 H Blood Pressure [Orthostatic Lying] Blood Pressure [Orthostatic Sitting] Blood Pressure [Orthostatic Standing] Pulse Oximetry 95 Oxygen Delivery Method Room Air MDM - Dizziness Lab Data Lab results narrative: White blood cell count 90164, hemoglobin 16.7, platelets adequate. Glucose 151. Renal function normal. Electrolytes unremarkable. Serum carbon dioxide 24. Total bilirubin 1.5 slight elevation, other liver functions normal range. Lipase normal. Troponin negative/unmeasurable. Urine dip negative for blood and leukocyte esterase, positive for ketones, negative for glucose. 08/17/24 12:30 08/17/24 12:30 Labs: Lab Results 08/17/24 Range/Units 12:30 WBC 11.4 H (4.5-11.0) X10^3/uL RBC 5.01 (4.5-5.9) X10^6/uL Hgb 16.7 (13.5-17.5) g/dL Hct 48.0 (41-53) % MCV 95.9 (80-100) fL MCH 33.3 (26-34) PG MCHC 34.7 (30-36) % RDW 12.7 (11.6-14.8) % Plt Count 253 (150-400) X10^3/uL Neut % (Auto) 66.7 (50-75) % Lymph % (Auto) 22.9 L (25-40) % Posey % (Auto) 8.3 (3-14) % Eos % (Auto) 1.3 L (2-4) % Baso % (Auto) 0.8 (0-2) % Neut # (Auto) 7600 H (9971-6900) /uL Lymph # (Auto) 2600 (8166-8481) /uL Posey # (Auto) 900 (0-900) /uL Eos # (Auto) 100 (0-450) /uL Baso # (Auto) 100 (0-100) /uL PT 11.2 (9.4-12.5) SECONDS INR 1.0 (0.9-1.3) APTT 38 H (25.1-36.5) SECONDS Sodium 137 (137-145) mmol/L Potassium 4.0 (3.4-5.1) mmol/L Chloride 105 (98-107) mmol/L Carbon Dioxide 24 (22-32) mmol/L BUN 13 (9-20) mg/dL Creatinine 1.00 (0.66-1.25) mg/dL Estimated GFR > 60 (>60) mL/min BUN/Creatinine Ratio 13.0 (6-22) Glucose 151 H (70-99) mg/dL Calcium 9.4 (8.4-10.2) mg/dL Magnesium 2.0 (1.6-2.3) mg/dL Total Bilirubin 1.5 H (0.2-1.3) mg/dL AST 30 (17-59) IU/L ALT 19 (<50) IU/L Alkaline Phosphatase 96 (38-126) U/L Total Creatine Kinase 87 (55-170) U/L Troponin I < 0.012 (0.01-0.034) ng/mL NT-Pro-B Natriuret Pep 100 (<450) pg/mL Total Protein 6.9 (6.3-8.2) g/dL Albumin 4.4 (3.5-5.0) g/dL Globulin 2.5 (1.7-4.1) g/dL Albumin/Globulin Ratio 1.8 (1.0-2.8) Lipase 65 (23-300) U/L Urine Dip Bedside Urine Glucose Negative Bedside Urine Bilirubin - Negative Bedside Urine Ketone +/- 5 Urine Specific [place] 1.010 Bedside Urine Occult Blood - Negative Bedside Urine pH 7.0 Bedside Urine Protein - Negative Bedside Urine Urobilinogen - Negative Bedside Urine Nitrite - Negative Bedside Urine Leukocytes - Negative Esterase ECG Data Attestation: I personally reviewed and interpreted this ECG as follows: Interpretation: 1232, normal sinus rhythm with rate of 62, no obvious ST segment elevation or depression changes. MA 164, QRS 94, QTC 412. MDM Narrative Medical decision making narrative: 79-year-old male with dizziness and recent diarrhea, worse symptoms or changes in positions, sounds orthostatic like in nature. Has been prescribed meclizine in the past. Currently he has not have any recent allergy or viral cold like symptoms. Symptoms not worse with isolated head movements. Screening labs unremarkable electrolytes, BUN creatinine normal. Urine dip positive for ketones without glucosuria, consider dehydration from recent diarrhea. IV fluid bolus trial. Trial of ambulation after fluid hydration. So stool obtained for lab testing. Feels better after IVF. Wants to go home. Consider OTC loperamide for diarrhea control. DC Home per patient request, return precautions discussed. Discharge Plan Departure Patient Disposition: Home Clinical Impression: Dizziness, Diarrhea Activity Restrictions/Additional Instructions: Dizziness with recent diarrhea. No black or red stools. Afebrile, normal vitals. IV fluids given, symptoms seemed to be better. You had been having dizziness with changes in position. But not changes isolated to head movements. Reassuring neurological exam. Symptoms seemed to be better after IV fluids. We discussed advanced imaging such as CT brain, CT angiogram of the head and neck vessels, hold for now. Prior prescriptions for meclizine, which can be helpful for middle ear like dizziness, however you did not seem to have any trouble with moving your head with vertigo symptoms at this time, hold refill of meclizine for now. Recheck symptoms with your regular doctor early this next week to see if further workup indicated, as an outpatient for now. Recheck to this/nearest emergency department for any change worsening symptoms or any concerns prior. Prescriptions: No Action meclizine 12.5 mg tablet 12.5 mg PO DAILY Qty: 20 0RF Referrals: Desch,Sabrina, PA-C [Primary Care Provider] - Stand Alone Forms: Patient Portal/API/Survey
[2024-08-17] MEDS: SODIUM CHLORIDE 0.9% 1,000 ML 1000 ML IV (14:43)
--- NOTE | 2024-08-17 15:34 | PC.NURSE ---
THe pt ambulated independently without assistive devices. He stated that he was a little off balance and wobbly while walking but he felt like he could go home safely.
--- NOTE | 2024-08-17 16:51 | PC.NURSE ---
pt states he feels better and wants to go home.
== END 2024-08-17 16:53 | disposition home or self-care (01) ==
PROVIDERS: Emergency Provider Emergency Medicine; PCP Physician Assistant
DX: R42 Dizziness and giddiness (principal); R19.7 Diarrhea, unspecified
CPT/HCPCS: 36415; 71045; 80053; 81003; 82550; 83690; 83735; 83880; 84484; 85025; 85610; 85730; 93005; 96360; 99284